=== PATIENT | male | born 1995 | race Hispanic/Latino ===

== ENCOUNTER 2024-11-19 16:41 | Emergency (ER) | payer SELFPAY ==
[2024-11-19 16:56] VITALS: BP 163/92
[2024-11-19 17:39] VITALS: BP 160/63
[2024-11-19 18:00] VITALS: BP 151/58
[2024-11-19 18:39] LABS: Hematocrit 41.6 % (39.0-52.0); Hemoglobin 15.0 g/dL (13.0-18.0); Mean Corp Hgb Conc. 36.1 g/dL (33.0-37.0); Mean Corpuscular Volume 88.7 fL (80.0-94.0); Platelet Count 185 10^3/uL (130-400); Red Cell Dist. Width 11.4 % (11.5-14.5)
--- NOTE | 2024-11-19 18:57 | ED.GENMED ---
History of Present Illness
General
Chief Complaint: Overdose Unintentional
Time Seen by Provider: 11/19/24 17:50
History of Present Illness
History of Present Illness:
29-year-old male presents the emergency department for evaluation after an accidental ingestion of household bleach. States he took 2 sips out of a cup that was unremarked at home, attempting to regurgitate but was unsuccessful. Reports initial
throat discomfort and upper abdominal burning sensation that is improved but is still present. Also notes that he 'tasted blood' in his throat after this occurred. Currently he denies any difficulty breathing or severe chest pain.
Past History
Past History
ED Past Medical History: None
ED Past Surgical History: None
Social History
Tobacco: Non-smoker
Alcohol: None
Drug: None
Personal: Single
Living: with family
Review of Systems
Review of Systems
Allergies reviewed?: Yes
All Other Systems: ROS reviewed and negative except as documented in HPI and ROS
Phy Exam
Physical Exam
Physical Exam:
GEN: Well appearing, NAD, WDWN
HEENT: Oral mucosa moist, no scleral icterus, oropharynx clear with no erythema or signs of hemorrhage
Cardiac: Regular rate
Lung: No respiratory distress, no tachypnea
MSK: No gross deformity or injuries
Skin: Good color, no pallor or jaundice, no rashes
Neuro: AO x3, moves all extremities freely
Psych: Calm, cooperative
Course
Orders/Labs/Results
Orders:
Orders
11/19/24 18:31
Complete Blood Count/No Diff Urgent
Comprehensive Metabolic Panel Urgent
Abnormal Lab Results
11/19/24
18:31
WBC 4.5 L 10^3/uL
(4.8-10.8)
RBC 4.69 L 10^6/uL
(4.70-6.10)
MCH 32.0 H pg
(27.0-31.0)
RDW 11.4 L %
(11.5-14.5)
Glucose 107 H mg/dl
(70-99)
11/19/24 18:31
11/19/24 18:31
Vital Signs
Initial and Last Documented VS:
Initial Vital Signs
Temp Pulse Resp BP Pulse Ox
98.7 F 63 16 163/92 99
11/19/24 16:56 11/19/24 16:56 11/19/24 16:56 11/19/24 16:56 11/19/24 16:56
Last Documented Vital Signs
Temp Pulse Resp BP Pulse Ox
98.7 F 58 11 141/59 98
11/19/24 16:56 11/19/24 19:15 11/19/24 19:15 11/19/24 19:00 11/19/24 19:15
MDM/Problems Addressed
MDM/Problems Addressed:
Will observe in the ED for any complications related to this bleach ingestion however given the small volume and a possible dilution of bleach this is unlikely to manifest as any severe complications.
Patient observed for greater than 2 hours in the ED with only mild throat discomfort, no signs of significant esophagitis. Suitable for discharge
*Pulse Oximetry
SaO2: 100
Oxygen Mode of Delivery: Room air
Patient hypoxic: no
*Critical Care Note
Total Time (30-74mins, 75-104mins- exclusive of procedures): Not Applicable
ED Attending Note
-
Portions of this chart may have been created with voice recognition software.� Occasional wrong word or��sound alike� substitutions may have occurred due to the inherent limitations of voice recognition software.
Discharge Plan
Departure
Discharge Problem:
Bleach ingestion
Referrals:
UNKNOWN - PT DOES,NOT KNOW [Unknown Provider]
Activity Restrictions/Additional Instructions:
Regrese a Urgencias si griffin s�ntomas empeoran. Es muy poco probable que la lej�a dom�stica cause problemas graves si se consume en nazia�as cantidades. Evite consumirla en el futuro.
Interventions
Interventions:
*Risk Screen - Suicide Last Done: 11/19/24 17:00
*General Assessment Last Done: 11/19/24 17:00
*Neglect/Abuse Screening Last Done: 11/19/24 17:00
*ED- Fall Risk Assessment Last Done: 11/19/24 18:03
*ED COVID-19 Vaccine History Last Done: 11/19/24 18:03
*ED Influenza Vaccine History Last Done: 11/19/24 18:03
ED- Cardiac Assessment Last Done: 11/19/24 18:03
ED- Neurological Assessment Last Done: 11/19/24 18:03
ED-Psychological Assessment Last Done: 11/19/24 18:03
ED- Pulmonary Assessment Last Done: 11/19/24 18:03
Discharge Date and Time
Print Language: DANISH
[2024-11-19 19:00] VITALS: BP 141/59
[2024-11-19 19:02] LABS: ALT (SGPT) 36 U/L (0-50); AST (SGOT) 33 U/L (17-59); Albumin 4.6 g/dl (3.5-5.0); Alkaline Phosphatase 50 U/L (38-126); Blood Urea Nitrogen 16 mg/dl (9-20); Calcium 9.6 mg/dl (8.4-10.2); Carbon Dioxide 30 mmol/L (22-30); Chloride 104 mmol/L (98-107); Glucose 107 mg/dl (70-99); Potassium 3.9 mmol/L (3.5-5.1); Sodium 139 mmol/L (135-145); Total Protein 7.2 g/dl (6.3-8.2); eGFR > 60.00
== END 2024-11-19 19:38 | disposition home or self-care (01) ==
LOC: EMR 16:41
PROVIDERS: Physician Assistant; EMERGENCY PHYSICIAN Emergency Medicine
DX: T54.91XA Toxic effect of unspecified corrosive substance, accidental (unintentional), initial encounter (principal)
CPT/HCPCS: 99283; 80053; 85027